=== PATIENT | female | born 1955 | race Caucasian/White ===

== ENCOUNTER 2016-10-06 09:26 | Day surgery (SDC) | payer BC ==
--- NOTE | ~2016-10-06 | EGD ---
EGD REPORT [facility] [address] [place]. [address] NAME: HAJA BRIGHT : [birth year] STATUS : [facility]#: [id number] AGE: 61 ADM/REG DATE : 10/06/16 MR#: [id number] REPORT SERV DATE: 10/06/16 DICTATED BY: TIFFANY HEDRICK DATE: 10/06/16 REPORT STATUS : Draft TRANSCRIBED BY: [facility] DATE: 10/06/16 Endoscopy Center Patient Name: Haja Bright Date of : 1955 Attending MD: TIFFANY HEDRICK MD Procedure Date No Time: 10/06/2016 Procedure: Upper GI endoscopy Indications: Abdominal pain in the left upper quadrant, Heartburn, Suspected esophageal reflux Referring MD: JANELLE STARK MD Medicines: as per anesthesia Complications: No immediate complications. Procedure: Pre-Anesthesia Assessment: - ASA Grade Assessment: II - A patient with mild systemic disease. After obtaining informed consent, the endoscope was passed under direct vision. Throughout the procedure, the patient's blood pressure, pulse, and oxygen saturations were monitored continuously. The GIF H190 [id number] was introduced through the mouth, and advanced to the third part of duodenum. The upper GI endoscopy was accomplished without difficulty. The patient tolerated the procedure well. Findings: The examined esophagus was normal. Localized mild inflammation characterized by erythema was found in the gastric antrum. Biopsies were taken with a cold forceps for histology. The cardia and gastric fundus were normal on retroflexion. The examined duodenum was normal. Impression: - Normal esophagus. - Gastritis. Biopsied. - Normal examined duodenum. Recommendation: - Await pathology results. - Follow an antireflux regimen. - Continue present medications. Procedure Code(s): --- Professional --- 10031, Esophagogastroduodenoscopy, flexible, transoral; with biopsy, single or multiple Diagnosis Code(s): --- Professional --- K29.70, Gastritis, unspecified, without bleeding EGD REPORT [facility] [address] [address] NAME: HAJA BRIGHT : [birth year] STATUS : [facility]#: [id number] AGE: 61 ADM/REG DATE : 10/06/16 MR#: [id number] REPORT SERV DATE: 10/06/16 DICTATED BY: TIFFANY HEDRICK. DATE: 10/06/16 REPORT STATUS : Draft TRANSCRIBED BY: [employer] DATE: 10/06/16 R10.12, Left upper quadrant pain R12, Heartburn CPT copyright 2013 [employer]. All rights reserved. The codes documented in this report are preliminary and upon commissioning agent review may be revised to meet current compliance requirements. TIFFANY HEDRICK MD 10/06/2016 11:30 AM This report has been signed electronically. Number of Addenda: 0 Note Initiated On: 10/06/2016 11:13 AM Scope Withdrawal Time 0 hours 0 minutes 0 seconds [address] [id number]
--- NOTE | ~2016-10-06 | EGD ---
EGD REPORT [facility] [address] [place]. [address] NAME: HAJA BRIGHT : [birth year] STATUS : [facility]#: [id number] AGE: 61 ADM/REG DATE : 10/06/16 MR#: [id number] REPORT SERV DATE: 10/06/16 DICTATED BY: TIFFANY HEDRICK DATE: 10/06/16 REPORT STATUS : Draft TRANSCRIBED BY: [facility] DATE: 10/06/16 Endoscopy Center Patient Name: Haja Bright Date of : 1955 Attending MD: TIFFANY HEDRICK MD Procedure Date No Time: 10/06/2016 Procedure: Colonoscopy Indications: Abdominal pain in the left upper quadrant, Rectal bleeding, FH of Colon Cancer -distant relative, Change in bowel habits Referring MD: JANELLE STARK MD Medicines: as per anesthesia Complications: No immediate complications. Procedure: Pre-Anesthesia Assessment: - ASA Grade Assessment: II - A patient with mild systemic disease. After I obtained informed consent, the scope was passed under direct vision. Throughout the procedure, the patient's blood pressure, pulse, and oxygen saturations were monitored continuously. The PCF [id number] was introduced through the anus and advanced to the cecum, identified by appendiceal orifice and ileocecal valve. The colonoscopy was performed without difficulty. The patient tolerated the procedure. The quality of the bowel preparation was adequate to identify polyps. Findings: The perianal and digital rectal examinations were normal. Internal hemorrhoids were found during endoscopy and were mild. Impression: - Internal hemorrhoids. Recommendation: - Repeat colonoscopy in 5 years for surveillance. Procedure Code(s): --- Professional --- 54177, Colonoscopy, flexible, proximal to splenic flexure; diagnostic, with or without collection of specimen(s) by brushing or washing, with or without colon decompression (separate procedure) Diagnosis Code(s): --- Professional --- K64.8, Other hemorrhoids R10.12, Left upper quadrant pain K62.5, Hemorrhage of anus and rectum Z80.0, Family history of malignant neoplasm of digestive EGD REPORT [facility] [address] [place] [address] NAME: HAJA BRIGHT : [birth year] STATUS : [facility] PAT#: [id number] AGE: 61 ADM/REG DATE : 10/06/16 MR#: [id number] REPORT SERV DATE: 10/06/16 DICTATED BY: TIFFANY HEDRICK. DATE: 10/06/16 REPORT STATUS : Draft TRANSCRIBED BY: [employer] DATE: 10/06/16 organs R19.4, Change in bowel habit CPT copyright 2013 [employer]. All rights reserved. The codes documented in this report are preliminary and upon php website developer review may be revised to meet current compliance requirements. TIFFANY HEDRICK MD 10/06/2016 11:49 AM This report has been signed electronically. Number of Addenda: 0 Note Initiated On: 10/06/2016 11:11 AM Scope Withdrawal Time 0 hours 9 minutes 30 seconds [address] [place] [address]
[~2016-10-06 09:26] MED LIST: CALTRA600D PO; FISH-EPA1000 MG PO; HAIR; HYDROCHLOROT25 MG PO; MULTIPLE VIT PO; NO MEDS PER PT; PRAV10 PO; PRAVAC PO; PRIN10 PO; SKIN; VIT; VITAMIN D31000 UNIT PO; [UNRECOGNIZED DRUG - OTHER]
== END 2016-10-06 23:59 | disposition home or self-care (01) ==
LOC: DMU 09:26
PROVIDERS: Internal Medicine Gastroenterology
PROC: 0DB68ZX Excision of Stomach, Via Natural or Artificial Opening Endoscopic, Diagnostic (ICD-10-PCS; principal; 2016-10-06 10:30)
PROC: 0DJD8ZZ Inspection of Lower Intestinal Tract, Via Natural or Artificial Opening Endoscopic (ICD-10-PCS; 2016-10-06 10:30)
DX: K29.70 Gastritis, unspecified, without bleeding (principal); K64.8 Other hemorrhoids; I10 Essential (primary) hypertension; E78.5 Hyperlipidemia, unspecified; Z88.5 Allergy status to narcotic agent; Z80.0 Family history of malignant neoplasm of digestive organs; Z96.612 Presence of left artificial shoulder joint; Z96.1 Presence of intraocular lens; Z98.41 Cataract extraction status, right eye; Z98.42 Cataract extraction status, left eye; Z90.710 Acquired absence of both cervix and uterus; Z90.722 Acquired absence of ovaries, bilateral; Z98.890 Other specified postprocedural states; Z79.899 Other long term (current) drug therapy
CPT/HCPCS: 88305